=== PATIENT | female | born 1965 | race Caucasian/White ===

== ENCOUNTER 2024-08-01 19:27 | Emergency (ER) | payer BC ==
[2024-08-01 20:19] LABS: Absolute Eosinophils 0.1 K/uL (0-0.5); Absolute Lymphocytes (CBC) 2.2 K/uL (0.7-4.9); Absolute Monocytes 0.3 K/uL (0.1-1.3); Absolute Neutrophil 3.2 K/uL (1.8-8.0); Basophils % 0.6 % (0-1.3); Eosinophils % 1.4 % (0-4.4); Hematocrit 43.4 % (36.0-45.0); Hemoglobin 14.8 g/dL (12.0-15.0); Lymphocytes % 37.9 % (15.3-44.8); MCH 31.7 pg (27.0-35.0); MCHC 34.1 g/dL (32.0-36.0); MPV 7.7 fL (7.6-11.3); Monocytes % 5.7 % (3.3-12.3); Neutrophils % 54.4 % (41.7-73.7); Nucleated Red Blood Cells % 0.1 % (0-0); Platelets 267 thou/uL (152-406); RBC Red Blood Cell Count 4.67 M/uL (3.86-4.86); Red Cell Distribution Width 12.6 % (12.1-15.2)
[2024-08-01 20:26] LABS: PT Prothrombin Time 11.1 SECONDS (9.4-12.5); Protime INR 0.99
[2024-08-01 20:55] LABS: ALT/SGPT 18 U/L (13-56); Albumin 4.1 g/dL (3.4-5.0); Albumin/Globulin Ratio 1.3 (1.1-1.8); Alkaline Phosphatase 80 U/L (45-117); Anion Gap 10.5 mEq/L (5.0-15.0); BUN Blood Urea Nitrogen 26 mg/dL (7-18); Bicarbonate 26 mEq/L (21-32); Bilirubin Total 0.4 mg/dL (0.2-1.0); Globulin 3.1 g/dL (2.3-3.5); Glomerular Filtration Rate 78 ml/min (=/>90); Glucose Level 322 mg/dL (74-106); Magnesium 2.1 mg/dL (1.6-2.4); Potassium 3.5 mEq/L (3.5-5.1); Protein, Total 7.2 g/dL (6.4-8.2); Sodium Level 135 mEq/L (136-145); Troponin High Sensitivity 3.4 pg/mL (<58.9)
[2024-08-01 20:57] LABS: AST/SGOT < 10 U/L (15-37); Bilirubin Direct < 0.2 mg/dL (0-0.2); Bilirubin Indirect, Calculated 0.2 mg/dL (0.2-0.8)
[2024-08-01] MEDS ORDERED: HYDROCODONE/APAP 7.5/325 MG TAB ONE (21:02)
[2024-08-01] MEDS ORDERED: NA CHLORIDE 0.9% 1,000 ML ONE (21:07)
--- NOTE | 2024-08-01 21:44 | RAD REPORT ---
EXAMINATION: US BILATERAL LOWER EXTREMITY VENOUS DOPPLER CLINICAL INDICATION: PAIN TECHNIQUE: Complete bilateral duplex sonography of the BILATERAL lower extremity veins was performed. The examination included compression for vein patency, color Doppler imaging and flow augmentation in response to distal compression of the distal external iliac, common femoral, femoral, popliteal, t ibial, and great and small saphenous veins. COMPARISON: No prior exam. FINDINGS: Duplex sonography testing of the veins of the BILATERAL lower extremity was performed. Color flow tj ging shows all veins to be compressible with [id number] color filling. Pulsatile and phasic flow is present within all lower extremity deep and superficial veins examined. IMPRESSION: There is no deep vein or superficial vein thrombosis.
--- NOTE | 2024-08-01 21:45 | RAD REPORT ---
EXAMINATION:Lower Extremity Arterial Bilat CLINICAL INDICATION: Female, 59 years old. PAIN TECHNIQUE: Arterial duplex ultrasound was performed of the right lower extremity with real-time, colo r-flow, and spectral wave Doppler evaluation. Ankle brachial indices were not performed. COMPARISON: No prior exam. FINDINGS: No plaque throughout the evaluated arterial system. Triphasic waveforms are seen throughout the evaluated right lower extremity arterial system, to the l evel of the dorsalis pedis artery. No other suspicious findings. IMPRESSION: No evidence of significant peripheral vascular disease.
--- NOTE | 2024-08-01 22:00 | ER ---
Nurse's Notes [facility] Name: Tia Reyes Age: 59 yrs Sex: Female : 1965 Arrival Date: 08/01/2024 Time: 19:27 Bed 17 Private MD: Diagnosis: Type 2 diabetes mellitus with hyperglycemia;Bilateral leg pain Presentation: 08/01 19:43 Chief complaint: Patient states: Pt I am having right leg pain for the past week that jb4 is a shooting throbbing pain that is worse when walking, I am also having dizzy spells and feeling light headed. Coronavirus screen: At this time, the client does not indicate any symptoms associated with coronavirus-19. Ebola Screen: No symptoms or risks identified at this time. Initial Sepsis Screen: Does the patient meet any 2 criteria? No. Patient's initial sepsis screen is negative. Does the patient have a suspected source of infection? No. Patient's initial sepsis screen is negative. Risk Assessment: Do you want to hurt yourself or someone else? Patient reports no desire to harm self or others. Onset of symptoms was July 25, 2024. Transition of care: patient was not received from another setting of care. 19:43 Method Of Arrival: Ambulatory jb4 19:43 Acuity: RACHEL 3 jb4 Historical: - Allergies: 19:55 PENICILLINS; jb4 - PMHx: 19:55 Anemia; Diabetes - NIDDM; Hepatitis C; jb4 - PSHx: 19:55 L eye (Hepatitis C); jb4 - Immunization history:: Adult Immunizations not up to date. - Infectious Disease History:: Denies. - Social history:: Smoking status: Patient reports the use of cigarette tobacco products, smokes one pack cigarettes per day. Screenin:11 [facility] ED Fall Risk Assessment (Adult) History of falling in the last 3 months, rg5 including since admission No falls in past 3 months (0 pts) Confusion or Disorientation No (0 pts) Intoxicated or Sedated No (0 pts) Impaired Gait No (0 pts) Mobility Assist Device Used No (0 pt) Altered Elimination No (0 pt) Score/Fall Risk Level 0 - 2 = Low Risk Oriented to surroundings, Maintained a safe environment, Hourly rounding (assess needs \T\ fall precautionary measures) done. Abuse screen: Denies threats or abuse. Nutritional screening: No deficits noted. Tuberculosis screening: No symptoms or risk factors identified. Assessment: 20:11 General: Appears in no apparent distress. Behavior is calm, cooperative, appropriate rg5 for age. Pain: Complains of pain in right leg and left leg Quality of pain is described as throbbing, Pain began 2-3 days ago. Neuro: Level of Consciousness is awake, alert, obeys commands, Oriented to person, place, time. Cardiovascular: Denies chest pain, Capillary refill < 3 seconds Patient's skin is warm and dry. Rhythm is sinus rhythm. Respiratory: Airway is patent Trachea midline Respiratory effort is even, unlabored, Respiratory pattern is regular, symmetrical. GI: Abdomen is round non-distended, Abd is soft and non tender. : No signs and/or symptoms were reported regarding the genitourinary system. EENT: No deficits noted. Derm: Skin is intact, Skin is dry, Skin is normal, Skin temperature is warm. Musculoskeletal: Circulation, motion, and sensation intact. Range of motion: intact in all extremities. 21:13 Reassessment: No changes from previously documented assessment. Patient and/or family rg5 updated on plan of care and expected duration. Pain level reassessed. Patient is alert, oriented x 3, equal unlabored respirations, skin warm/dry/pink. Vital Signs: 19:43 BP 148 / 72; Pulse 85; Resp 16; Temp 98.3(O); Weight 77.11 kg; Height 5 ft. 4 in. ; jb4 Pain 8/10; 20:11 BP 143 / 58; Pulse 84; Resp 17; Pulse Ox 97% on R/A; rg5 21:13 BP 142 / 72; Pulse 70; Resp 17; Pulse Ox 100% ; rg5 19:43 Body Mass Index 29.18 (77.11 kg, 162.56 cm) jb4 19:43 Pain Scale: Adult jb4 Pa Coma Score: 20:11 Eye Response: spontaneous(4). Motor Response: obeys commands(6). Verbal Response: rg5 oriented(5). Total: 15. ED Course: 19:31 Patient arrived in ED. ra3 19:34 Dhara Cotto PA-C is PHCP. sb4 19:34 Jazmine Russell MD is Attending Physician. sb4 19:55 Triage completed. jb4 19:55 Efrain Whitaker, RN is Primary Nurse. rg5 19:55 Arm band placed on right wrist. jb4 20:11 Patient has correct armband on for positive identification. Placed in gown. Call light rg5 in reach. Side rails up X 1. Client placed on continuous cardiac and pulse oximetry monitoring. NIBP monitoring applied. engine monitor on. Pulse ox on. NIBP on. Door closed. Noise minimized. Warm blanket given. Verbal reassurance given. 20:11 No provider procedures requiring assistance completed. Inserted saline lock: 20 gauge rg5 in right antecubital area, using aseptic technique. Blood collected. Flushed with 10 mL NS intact. 21:24 Extrem Venous W Compression [place] US In Process Unspecified. EDMS 21:24 Lower Extremity Arterial Bilat US In Process Unspecified. EDMS 22:23 Provided Education on: post er care. rg5 Administered Medications: 20:40 Drug: Hydrocodone-Acetaminophen PO (7.5 mg-325 mg) 1 tabs PO once Route: PO; rg5 22:02 Follow up: Response: No adverse reaction; Pain is decreased rg5 21:10 Drug: NS 0.9% IV 1000 ml IV at 1000 ml once; to be given as a bolus over 60 minutes rg5 Route: IV; Rate: 1000 ml; Site: right antecubital; 22:02 Follow up: IV Status: Completed infusion; IV Intake: 1000ml rg5 Medication: 20:11 VIS not applicable for this client. rg5 Intake: 22:02 IV: 1000ml; Total: 1000ml. rg5 Outcome: 22:00 Discharge ordered by . sb4 22:22 Discharged to home ambulatory, rg5 22:22 Condition: stable 22:22 Discharge instructions given to patient, Instructed on discharge instructions, follow up and referral plans. Demonstrated understanding of instructions, follow-up care, medications, Prescriptions given X 2, 22:23 Patient left the ED. rg5 Signatures: Dispatcher [employer] EDMS Shelton Ramos, RN RN [id number] Dhara Cotto, PA-C PAPattiC [id number] Aruna Russo ra3 Efrain Whitaker, RN RN rg5
--- NOTE | 2024-08-01 22:00 | EDPHYS ---
Physician Documentation [facility] Name: Tia Reyes Age: 59 yrs Sex: Female : 1965 Arrival Date: 08/01/2024 Time: 19:27 Bed 17 Private MD: ED Physician Jazmine Russell HPI: 08/01 20:09 This 59 yrs old Female presents to ER via Ambulatory with complaints of Leg Pain. sb4 20:22 patient reports intermittent right leg pain x 1 week. reports the pain as "throbbing" sb4 feels it mostly in her inner leg. states it does improve with tylenol and NSAIDs but comes back a few hours later. she denies any redness, swelling, or warmth. denies any recent travel, prolonged immobilization, or history of blood clots. she is a daily smoker. states that her left leg has similar pains occasionally, but never as constant. additionally, she reports a few dizzy spells over the past week. Historical: - Allergies: 19:55 PENICILLINS; jb4 - PMHx: 19:55 Anemia; Diabetes - NIDDM; Hepatitis C; jb4 - PSHx: 19:55 L eye (Hepatitis C); jb4 - Immunization history:: Adult Immunizations not up to date. - Infectious Disease History:: Denies. - Social history:: Smoking status: Patient reports the use of cigarette tobacco products, smokes one pack cigarettes per day. ROS: 20:25 Constitutional: Negative for fever, chills, and weight loss, sb4 20:25 MS/extremity: Positive for pain, of the right leg, 20:25 All other systems are negative, Exam: 20:28 Constitutional: This is a well developed, well nourished patient who is awake, alert, sb4 and in no acute distress. Head/Face: Normocephalic, atraumatic. Eyes: Extra-ocular motions intact. Periorbital areas with no swelling, redness, or edema. ENT: Mucous membranes moist. Cardiovascular: Regular rate and rhythm with a normal S1 and S2. Respiratory: No increased work of breathing, no retractions or nasal flaring. Abdomen/GI: Soft, non-tender, no distension. Skin: Warm, dry with normal turgor. Normal color with no rashes, no lesions, and no evidence of cellulitis. MS/ Extremity: Pulses equal, no cyanosis. Neurovascular intact. Full, normal range of motion. Neuro: Awake and alert, GCS 15, oriented to person, place, time, and situation. Motor strength 5/5 in all extremities. Sensory grossly intact. 20:28 Musculoskeletal/extremity: DVT Exam: no swelling, no tenderness, negative Homans' sign noted on exam, no appreciated bluish discoloration, no erythema, no increased warmth, pain, of the right leg, Vital Signs: 19:43 BP 148 / 72; Pulse 85; Resp 16; Temp 98.3(O); Weight 77.11 kg; Height 5 ft. 4 in. ; jb4 Pain 8/10; 20:11 BP 143 / 58; Pulse 84; Resp 17; Pulse Ox 97% on R/A; rg5 21:13 BP 142 / 72; Pulse 70; Resp 17; Pulse Ox 100% ; rg5 19:43 Body Mass Index 29.18 (77.11 kg, 162.56 cm) jb4 19:43 Pain Scale: Adult jb4 Pa Coma Score: 20:11 Eye Response: spontaneous(4). Motor Response: obeys commands(6). Verbal Response: rg5 oriented(5). Total: 15. MDM: 19:41 Medical Screening Exam initiated sb4 21:59 Data reviewed: vital signs, nurses notes, lab test result(s), EKG, radiologic studies, sb4 and as a result, I will discharge patient. Counseling: I had a detailed discussion with the patient and/or guardian regarding the historical points, exam findings, and any diagnostic results supporting the discharge/admit diagnosis, the presence of at least one elevated blood pressure reading (>120/80) during this emergency department visit, lab results, radiology results, the need for outpatient follow up, for definitive care, to return to the emergency department if symptoms worsen or persist or if there are any questions or concerns that arise at home. 08/01 19:54 Order name: Basic Metabolic Panel; Complete Time: 21:01 sb4 08/01 19:54 Order name: CBC with Diff; Complete Time: 20:22 sb4 08/01 19:54 Order name: LFT's; Complete Time: : sb4 08/01 19:54 Order name: Magnesium; Complete Time: 21: sb4 08/01 19:54 Order name: PT-INR; Complete Time: 20:28 sb4 08/01 19:54 Order name: Troponin HS; Complete Time: 21: sb4 08/01 20:11 Order name: Extrem Venous W Compression [place] US; Complete Time: 21:46 sb4 08/01 20:12 Order name: Lower Extremity Arterial Bilat US; Complete Time: 21:46 sb4 08/01 19:54 Order name: EKG; Complete Time: 19:55 sb4 08/01 19:54 Order name: Cardiac monitoring; Complete Time: 20:09 sb4 08/01 19:54 Order name: EKG - Nurse/Tech; Complete Time: 20:09 sb4 08/01 19:54 Order name: IV Saline Lock; Complete Time: 20: sb4 08/01 19:54 Order name: Labs collected and sent; Complete Time: 20:09 sb4 08/01 19:54 Order name: O2 Per Protocol; Complete Time: 20: sb4 08/01 19:54 Order name: O2 Sat Monitoring; Complete Time: 20:09 sb4 EC:10 Rate is 80 beats/min. Rhythm is regular, Normal Sinus Rhythm. CA interval is normal at sb4 166 msec. QRS interval is normal at 80 msec. QT interval is normal at 414 msec. No Q waves. T waves are Normal. No ST changes noted. Clinical impression: Normal ECG. Interpreted by me. Reviewed by me. Administered Medications: 20:40 Drug: Hydrocodone-Acetaminophen PO (7.5 mg-325 mg) 1 tabs PO once Route: PO; rg5 22:02 Follow up: Response: No adverse reaction; Pain is decreased rg5 21:10 Drug: NS 0.9% IV 1000 ml IV at 1000 ml once; to be given as a bolus over 60 minutes rg5 Route: IV; Rate: 1000 ml; Site: right antecubital; 22:02 Follow up: IV Status: Completed infusion; IV Intake: 1000ml rg5 Disposition Summary: 08/01/24 22:00 Discharge Ordered Notes: Location: Home sb4 Problem: an ongoing problem sb4 Symptoms: have improved sb4 Condition: Stable sb4 Diagnosis - Type 2 diabetes mellitus with hyperglycemia sb4 - Bilateral leg pain sb4 Followup: sb4 - With: Private Physician - When: 1 week - Reason: Recheck today's complaints, Re-evaluation by your physician Discharge Instructions: - Discharge Summary Sheet sb4 - Diabetic Neuropathy sb4 Forms: - Patient Portal Instructions sb4 - Leadership Thank You Letter sb4 Prescriptions: - gabapentin 100 mg Oral capsule - take 2 capsule ORAL route every 8 hours; 20 capsule; Refills: 0, Product sb4 Selection Permitted - Metformin 500 mg Oral Tablet - take 1 tablet ORAL route once daily for 7 days Then take 1 tablet with morning sb4 meals AND evening meals; 21 tablet; Refills: 0, Product Selection Permitted Signatures: Dispatcher [employer] EDMS Shelton Ramos, RN RN jb4 Dhara Cotto PA-C PAJessica sb4 Efrain Whitaker, RN RN rg5 Corrections: (The following items were deleted from the chart) 19:55 19:55 BASIC METABOLIC PANEL+C.LAB.BRZ ordered. EDMS EDMS 19:55 19:55 CBC+H.LAB.BRZ ordered. EDMS EDMS 19:55 19:55 HEPATIC FUNCTION+C.LAB.BRZ ordered. EDMS EDMS 19:55 19:55 MAGNESIUM+C.LAB.BRZ ordered. EDMS EDMS 19:55 19:55 PROTIME (+INR)+COAG.LAB.BRZ ordered. EDMS EDMS 19:55 19:55 Troponin High Sensitivity+C.LAB.BRZ ordered. EDMS EDMS 20:12 20:12 Lower Extremity Arterial Bilat+US.RAD.BRZ ordered. EDMS EDMS 20:27 20:22 patient reports intermittent right leg pain x 1 week. sb4 sb4
[2024-08-01 22:30] VITALS: TEMP 98.3
[2024-08-01 22:33] VITALS: BP 142/72; O2SAT 100
--- NOTE | 2024-08-07 11:02 | EKG ---
Test Date: 2024-08-01 Test Time: 20:07:15 Consulting Sme: MOISES MEASUREMENT RESULTS: Intervals: Rate: 80 CT: 166 QRSD: 80 QT: 414 QTc: 477 Calvin: P: 57 CT: 166 QRS: 70 T: 71 INTERPRETIVE STATEMENTS: Normal sinus rhythm Septal infarct, age undetermined Abnormal ECG Compared to ECG 08/31/2014 18:56:29 Myocardial infarct finding now present Electronically Signed On 08-07-24 10:54:49 CANCELING MACHINE OPERATOR by Crispin Aviles
== END 2024-08-01 22:23 | disposition home or self-care (01) ==
LOC: ER 19:27
DX: E11.65 Type 2 diabetes mellitus with hyperglycemia (principal); M79.605 Pain in left leg; M79.604 Pain in right leg; F17.210 Nicotine dependence, cigarettes, uncomplicated
CPT/HCPCS: 93005; 85025; 80048; 36415; 83735; 85610; 80076; 84484; 93925; 93970; 96360; 99285; J7030